=== PATIENT | female | born 1970 | race Caucasian/White ===

== ENCOUNTER 2017-11-04 06:07 | Observation (INO) | payer OTHER ==
[~2017-11-04 06:07] MED LIST: Buffered Lidocaine 0.9% SYRIN* 5 ML/SYR SYRINGE INTRADERM ONE; Dexamethasone IV* 4 MG/ML 1 ML (4 MG) IV SLOW PU ONE; Famotidine IV* 10 MG/ML 2 ML (20 mg) IV ONE
[2017-11-04] MEDS ORDERED: Famotidine IV* 10 MG/ML 2 ML (20 mg) ONE (06:17)
[2017-11-04] MEDS ORDERED: Dexamethasone IV* 4 MG/ML 1 ML (4 MG) ONE (06:17)
[2017-11-04] MEDS ORDERED: ceFAZolin 2 GM in NS PREMIX(*) 0 GM/0 ML BAG IVPB ONE (06:17)
[2017-11-04] MEDS ORDERED: Clindamycin 900 MG/D5W BAG(*) 900 MG/50 ML BAG IVPB ONE (06:19)
[2017-11-04] MEDS ORDERED: Rocuronium* 10 MG/ML VIAL ONE (06:59)
[2017-11-04] MEDS ORDERED: Propofol* 10 MG/ML 20 ML BTL IV PUSH ONE (06:59)
[2017-11-04] MEDS ORDERED: Lidocaine 2% PF * 5 ML VIAL ONE (06:59)
[2017-11-04] MEDS ORDERED: Midazolam* 1 MG/ML 5 ML VIAL (5 MG) ONE (07:00)
[2017-11-04] MEDS ORDERED: fentaNYL* 50 MCG/ML 5 ML VIAL (250 MCG VIAL) ONE (07:01)
[2017-11-04] MEDS ORDERED: Bacitracin IV* 50,000 UNITS INJ ONE (07:16)
[2017-11-04] MEDS ORDERED: Lidocain 1% EPI 1:100,000 * 30 ML MDV ONE (07:16)
[2017-11-04] MEDS ORDERED: Thrombin 5,000 UNITS* 1 APPLIC KIT - topical use - TOPICAL ONE (07:16)
[2017-11-04] MEDS ORDERED: HYDROcodone/ACETAMIN 5-325 MG* 1 TAB PO PRN (07:23)
[2017-11-04] MEDS ORDERED: Naloxone* 0.4 MG/ML 1 ML VIAL IV PRN (07:23)
[2017-11-04] MEDS ORDERED: DiMENhydriNATE IV* 50 MG/ML VIAL IV PUSH PRN (07:23)
[2017-11-04] MEDS ORDERED: oxyCODONE/Acetamin 5/325 MG* TAB PO PRN (07:23)
[2017-11-04] MEDS ORDERED: Ondansetron INJ* 2 MG/ML VIAL ONE (08:34)
[2017-11-04] MEDS ORDERED: Glycopyrrolate IV* 0.2 MG/ML 1 ML VIAL ONE (08:36)
[2017-11-04] MEDS ORDERED: Neostigmine Methylsulfate* 1 MG/ML 10 ML VIAL (1 mg/ml) ONE (08:36)
[2017-11-04] MEDS ORDERED: Acetaminophen TAB* 325 MG PO PRN (08:53)
[2017-11-04] MEDS ORDERED: Ondansetron INJ* 2 MG/ML VIAL IV PRN (08:53)
[2017-11-04] MEDS ORDERED: Magnesium Hydroxide LIQ* 30 ML UDC PO PRN (08:53)
[2017-11-04] MEDS ORDERED: fentaNYL* 50 MCG/ML 2 ML VIAL (100 MCG VIAL) ONE ×3 (09:16→09:56)
[2017-11-04] MEDS: fentaNYL* 50 MCG/ML 2 ML VIAL (100 MCG VIAL) IV PRN ×5 (09:17→09:57)
[2017-11-04] MEDS ORDERED: oxyCODONE/Acetamin 5/325 MG* TAB ONE (09:54)
--- NOTE | 2017-11-04 10:07 | RAD ---
HISTORY: LUMBAR DISCECTOMY L4-5 LEFT,DECOMPRESSIVE LUMBAR L COMPARISONS: October 07, 2017. VIEWS: 1 , single single portable crosstable intraoperative view of the lumbar spine performed for localization during spine surgery at 7:59 AM FINDINGS: Portable intraoperative view of the spine performed during spinal surgery demonstrates metallic probe opposite of L4-L5 counting from L5 as the last lumbar type vertebral body. IMPRESSION: LIMITED PORTABLE VIEW OF THE SPINE FOR LOCALIZATION DURING SPINAL SURGERY.
[2017-11-04] MEDS: HYDROcodone/ACETAMIN 5-325 MG* 1 TAB PO PRN ×3 (11:34→20:28)
[2017-11-04] MEDS ORDERED: Montelukast Sodium TAB* 10 MG PO SCH (21:00)
[2017-11-04] MEDS ORDERED: Baclofen TAB* 10 MG PO SCH (21:00)
[2017-11-05] MEDS: HYDROcodone/ACETAMIN 5-325 MG* 1 TAB PO PRN ×3 (01:21→09:18)
[2017-11-05 07:29] VITALS: BP 116/59
--- NOTE | 2017-11-05 08:37 | PN ---
Progress Note - Progress Note Date of Service: 11/05/17 SOAP: Subjective: [S/p lumbar decompression L4-5, POD#1. Complains of low back soreness and pain. Ambulation improved since preop, ambulating around nursing unit well. Pre-op lower extremity symptoms improved. Eating and drinking without difficulty. Pain controlled with PO meds. Denies headache, nausea. ] Objective: [ Vital Signs: Temp Pulse Resp BP Pulse Ox 98.4 F 57 18 116/59 97 11/05/17 07:21 11/05/17 07:21 11/05/17 08:02 11/05/17 07:21 11/05/17 07:21 General: Alert and sitting up in bed. NAD Neuro: Motor and sensory intact. Incision: Intact with zehra. Drain discontinued today. No swelling, mild ecchymosis. ] Assessment: [Satisfactory post-op course. ] Plan: [1. Discharge home today. 2. Discharge instructions discussed.]
[2017-11-05] MEDS ORDERED: Baclofen TAB* 10 MG PO SCH (09:00)
--- NOTE | 2017-11-05 23:56 | OP ---
DATE OF OPERATION: 11/04/17 - ROOM #335 DATE OF : 66 SURGEON: Michael Alcantara MD ON AIR HOST: JOE Rosenbaum ANESTHESIA: General. PRE-OP DIAGNOSIS: Lumbar spinal stenosis at L4-5, herniated nucleus pulposus L4 -5 on the left. POST-OP DIAGNOSIS: Lumbar spinal stenosis L4-5. OPERATIVE PROCEDURE: Decompressive lumbar laminectomy at L4-5 with microdissection. DESCRIPTION OF PROCEDURE: After satisfactory general anesthesia was obtained, the patient was placed on the operating table in a prone position with the chest supported on the Manuelito frame and the back slightly flexed. The lumbar region was then clipped, prepped and draped in a sterile manner for lumbar laminectomy and a skin incision outlined from L4 to L5. This incision was infiltrated with 1% Xylocaine with epinephrine after which it was turned down sharply to the level of the lumbar fascia. The fascia was divided along the spinous processes of L4 and L5 and the paraspinal musculature was stripped away from these posterior elements using the periosteal elevator and monopolar cautery. An intraoperative x-ray was obtained verifying proper interspace localization after which a decompression was carried out by removing the spinous process at L4 with a Leksell rongeur. The remaining portion at the base of the spinous process of L4 and the medial facet complex was thinned out with a Midas Adolfo drill. Kerrison rongeurs were then used to perform a decompression. This was carried superiorly until the attachment of the ligamentum flavum was taken down. Generous decompression was carried out at this level until both L5 nerve roots noted to be free in their course. Generous foraminotomies were carried out at this level. At this point of the procedure, the operating microscope was brought into the field as preoperative imaging has suggested a disk herniation on the left side. Utilizing microdissection, epidural venous structures were coagulated and divided. Projecting beneath the L5 nerve root was noted to be a calcified heaped up disk that was not disturbed. After assuring adequate hemostasis, wound was thoroughly irrigated, after which a piece of Gelfoam was placed over the laminectomy defect. A drain was then placed in the epidural space and tunnelled out towards the left side. The fascia was then reapproximated with 0 Vicryl suture. The subcutaneous tissues were closed with 3-0 Vicryl suture and the skin closed with skin clips. The estimated blood loss was 100 cc and the final sponge, padding, and needle counts were correct. The patient was taken to the recovery room, extubated, and in stable condition. [id number] #: [id number] MTDD
== END 2017-11-05 09:30 | disposition home or self-care (01) ==
LOC: OR 06:07 → SSU 08:53
PROVIDERS: ADMIT Neurological Surgery; ATTEND Neurological Surgery
PROC: 01NB0ZZ Release Lumbar Nerve, Open Approach (ICD-10-PCS; 2017-11-04)
PROC: 0SB20ZZ Excision of Lumbar Vertebral Disc, Open Approach (ICD-10-PCS; principal; 2017-11-04 07:30)
DX: M51.26 Other intervertebral disc displacement, lumbar region (principal); M48.061 Spinal stenosis, lumbar region without neurogenic claudication; M51.16 Intervertebral disc disorders with radiculopathy, lumbar region; Z88.0 Allergy status to penicillin; Z88.8 Allergy status to other drugs, medicaments and biological substances; Z79.899 Other long term (current) drug therapy; F17.210 Nicotine dependence, cigarettes, uncomplicated; Z23 Encounter for immunization
CPT/HCPCS: 72100; 90471; 90686; 96374; 96376; A9270-GY; G0008; G0378; J0690; J1100; J2250; J2405; J2704; J2710; J3010

== ENCOUNTER 2023-10-31 08:08 | Inpatient (IN) ==
[2023-10-31] MEDS: Lactated Ringers SEPSIS* BAG 1,850 ML IV ONE (08:44)
[2023-10-31] MEDS: fentaNYL 100 mcg/2 ml 50 MCG/ML VIAL IV SLOW PU ONE (08:49)
[2023-10-31] MEDS: Cefepime 2 GM in Dextrose 2 GM/50 ML BAG IV ONE (08:49)
[2023-10-31 08:57] LABS: ABS Lymphocytes 0.1 10^3/uL (1.0-4.8); ABS Monocytes 0.3 10^3/uL (0.0-0.9); ABS Neutrophils 8.9 10^3/uL (1.5-7.6); ABS Nucleated RBC 0.01 10^3/ul; Eosinophil % 0.5 %; Hemoglobin 15.1 g/dL (11.5-14.3); Lymphocyte % 1.1 %; Mean Corpuscular Hemoglobin 29.9 pg (27-33); Mean Corpuscular Hgb Conc 33.5 g/dL (31-36); Mean Corpuscular Volume 89.4 fL (80-97); Mean Platelet Volume 8.1 fL (7.5-11.2); Nucleated Red Blood Cells % 0.1 %/100WBC (0.0-0.8); Platelet Count 368 10^3/uL (150-450); Red Blood Count 5.04 10^6/uL (3.63-4.92); Red Cell Distribution Width 13.6 % (12-17); White Blood Count 9.3 10^3/uL (3.8-11.8)
[2023-10-31] MEDS: Lactated Ringers 1000 ml BAG 1,000 ML IV ONE ×2 (09:12→11:15)
[2023-10-31] MEDS: Ondansetron 4 mg VIAL 2 MG/ML 2 ml VIAL IV ONE (09:45)
[2023-10-31] MEDS: Morphine 4 MG/ML VIAL (1 ml) IV ONE ×3 (09:45→12:59)
[2023-10-31 10:04] LABS: Albumin 3.9 g/dL (3.2-5.2); Albumin/Globulin Ratio 1.5 (1-3); C Reactive Protein 56.63 mg/L (<8.01); Calcium 8.6 mg/dL (8.6-10.3); Creatinine, Serum 0.86 mg/dL (0.51-0.95); Globulin 2.6 g/dL (2-4); Potassium 3.8 mmol/L (3.5-5.0); Total Bilirubin 0.4 mg/dL (0.2-1.0); Total Protein 6.5 g/dL (6.4-8.9); eGFR CKD-EPI 79.7 (>60)
[2023-10-31 10:20] LABS: Activated Partial Thrombo Time 29.6 seconds (26.0-38.0); INR 1.09 (0.85-1.14)
[2023-10-31 10:30] LABS: High Sensitivity Troponin 1 Hr 6 pg/mL (<15)
[2023-10-31] MEDS: Iodixanol (CONTRAST) 320 MG/ML 100 ML SDV IV ONE (12:31)
[2023-10-31 13:52] LABS: Urine Appearance Clear; Urine Bacteria Absent /HPF (Absent); Urine Bilirubin Negative (Negative); Urine Blood Negative (Negative); Urine Color Yellow; Urine Glucose 1+ (>=70 mg/dL) (Negative); Urine Ketones 1+ (Negative); Urine Nitrite Negative (Negative); Urine Protein 2+ (>=100 mg/dL) (Negative); Urine Red Blood Cell 1+(3-5/hpf) /HPF (0-Trace); Urine Specific Gravity >1.050 (1.002-1.030); Urine Squamous Epithelial Cell Present /HPF (Absent); Urine Urobilinogen Negative (Negative); Urine White Blood Cell Trace(0-5/hpf) /HPF (0-Trace)
[2023-10-31] MEDS ORDERED: Zosyn per Pharmacy NOTE FOLLOW UP SCH (14:00)
[2023-10-31] MEDS ORDERED: Ondansetron 4 mg VIAL 2 MG/ML 2 ml VIAL IV PRN (14:03)
[2023-10-31] MEDS: Piperacillin/Tazobac 3.375 BAG 3.375 GM/100 ML BAG IV ONE (14:08)
[2023-10-31] MEDS ORDERED: Bupivacaine 0.25% EPI 200,000 30 ML SDV ONE (14:26)
[2023-10-31] MEDS ORDERED: Ondansetron 4 mg VIAL 2 MG/ML 2 ml VIAL ONE (14:35)
[2023-10-31] MEDS ORDERED: Rocuronium 50 mg VIAL 10 mg/ml 5 ml VIAL (50 mg) ONE ×2 (14:35→16:14)
[2023-10-31] MEDS ORDERED: Propofol 10 MG/ML 20 ML BTL ONE (14:35)
[2023-10-31] MEDS ORDERED: Dexamethasone IV 4 MG/ML VIAL 1 ml VIAL ONE (14:35)
[2023-10-31] MEDS ORDERED: fentaNYL 250 mcg/5 ml 50 MCG/ML 5 ml VIAL (250 MCG) ONE (14:35)
[2023-10-31] MEDS ORDERED: Lidocaine 2% PF 5 ML VIAL ONE (14:35)
[2023-10-31] MEDS ORDERED: Midazolam 2 mg/2 ml VIAL 1 mg/ml 2 ml VIAL (2 mg) ONE (14:35)
[2023-10-31] MEDS ORDERED: HYDROmorphone 0.5 MG/0.5 ML SYRINGE ONE ×2 (15:35→15:43)
[2023-10-31] MEDS ORDERED: fentaNYL 100 mcg/2 ml 50 MCG/ML VIAL ONE ×2 (15:43→17:37)
[2023-10-31] MEDS ORDERED: Dextrose 50% Syringe 50 ml 25 GM/50 ML SYRINGE IV PUSH PRN (20:46)
[2023-10-31] MEDS: Lactated Ringers 1000 ml BAG 1,000 ML IV SCH (21:23)
[2023-10-31] MEDS: ZOSYN 3.375 GM x ONE DOSE over 30 miuntes IV (23:02)
[2023-11-01] MEDS: Pantoprazole VIAL 40 MG VIAL IV SCH (03:04)
[2023-11-01] MEDS: ZOSYN 3.375 GM Q8H per EXTENDED INFUSION IV SCH (04:05)
[2023-11-01 06:37] LABS: ABS Lymphocytes 0.1 10^3/uL (1.0-4.8); ABS Monocytes 0.6 10^3/uL (0.0-0.9); ABS Neutrophils 12.5 10^3/uL (1.5-7.6); Hematocrit 39.5 % (35-45); Hemoglobin 13.2 g/dL (11.5-14.3); Lymphocyte % 0.8 %; Mean Corpuscular Hemoglobin 29.6 pg (27-33); Mean Corpuscular Hgb Conc 33.4 g/dL (31-36); Mean Corpuscular Volume 88.7 fL (80-97); Platelet Count 293 10^3/uL (150-450); Red Blood Count 4.46 10^6/uL (3.63-4.92); Red Cell Distribution Width 13.3 % (12-17); White Blood Count 13.2 10^3/uL (3.8-11.8)
[2023-11-01 07:20] LABS: Calcium 7.7 mg/dL (8.6-10.3); Creatinine, Serum 0.73 mg/dL (0.51-0.95); Potassium 4.1 mmol/L (3.5-5.0); eGFR CKD-EPI 97.1 (>60)
[2023-11-01] MEDS: Enoxaparin 40 MG/0.4 ML SYR SUBCUT SCH (08:15)
[2023-11-01] MEDS: Vancomycin 1,000 MG in NS 0.9% 250 ml 250 ML IVPB ONE (09:49)
[2023-11-01] MEDS: Influenza Vaccine *TRI* 2024-25* 0.5 ML SYRINGE IM ONE (13:09)
[2023-11-02] MEDS: [UNRECOGNIZED DRUG - OTHER] IV SCH (00:27)
[2023-11-02 06:40] LABS: Anion Gap 6 mmol/L (2-16); Blood Urea Nitrogen 10 mg/dL (6-24); CO2 Carbon Dioxide 26 mmol/L (22-32); Calcium 7.2 mg/dL (8.6-10.3); Chloride 104 mmol/L (101-111); Creatinine, Serum 0.62 mg/dL (0.51-0.95); Glucose 130 mg/dL (70-100); Sodium 136 mmol/L (135-145); eGFR CKD-EPI 105.1 (>60)
[2023-11-02 07:52] LABS: Potassium, Whole Blood 3.3 mmol/L (3.4-4.5)
[2023-11-02] MEDS: Phenol 1.4% Throat Spray BTL MT PRN (20:21)
[2023-11-03] MEDS: D5LR 1000 ml BAG 1,000 ML IV SCH (11:55)
[2023-11-04] MEDS: Influenza Vaccine *TRI* 2024-25* 0.5 ML SYRINGE IM ONE (08:23)
[2023-11-04 09:52] LABS: ABS Eosinophils 0.2 10^3/uL (0.0-0.5); ABS Lymphocytes 0.1 10^3/uL (1.0-4.8); ABS Monocytes 0.8 10^3/uL (0.0-0.9); ABS Neutrophils 9.2 10^3/uL (1.5-7.6); Eosinophil % 1.5 %; Hematocrit 34.9 % (35-45); Hemoglobin 12.1 g/dL (11.5-14.3); Lymphocyte % 1.4 %; Mean Corpuscular Hemoglobin 30.3 pg (27-33); Mean Corpuscular Hgb Conc 34.5 g/dL (31-36); Mean Corpuscular Volume 87.8 fL (80-97); Mean Platelet Volume 7.8 fL (7.5-11.2); Platelet Count 260 10^3/uL (150-450); Red Blood Count 3.98 10^6/uL (3.63-4.92); Red Cell Distribution Width 13.9 % (12-17); White Blood Count 10.4 10^3/uL (3.8-11.8)
[2023-11-04 10:36] LABS: Creatinine, Serum 0.49 mg/dL (0.51-0.95); Potassium 3.2 mmol/L (3.5-5.0); eGFR CKD-EPI 111.2 (>60)
[2023-11-06 10:03] LABS: Calcium 7.6 mg/dL (8.6-10.3); Creatinine, Serum 0.44 mg/dL (0.51-0.95); Magnesium 1.7 mg/dL (1.9-2.7); Phosphorus 2.1 mg/dL (2.5-5.0); eGFR CKD-EPI 114.2 (>60)
[2023-11-06] MEDS: Magnesium Sulfate 2 gm BAG 2 GM/50 ML BAG IVPB ONE (19:00)
[2023-11-06] MEDS: KCL 10 MEQ/50 ML IVPREMIX 10 MEQ/50 ML BAG IV SCH (21:57)
[2023-11-07 09:07] LABS: Calcium 7.2 mg/dL (8.6-10.3); Creatinine, Serum 0.44 mg/dL (0.51-0.95); Magnesium 1.9 mg/dL (1.9-2.7); Potassium 3.3 mmol/L (3.5-5.0); eGFR CKD-EPI 114.2 (>60)
[2023-11-07] MEDS: KCL 10 MEQ/50 ML IVPREMIX 10 MEQ/50 ML BAG IV SCH (10:59)
[2023-11-08 07:13] LABS: Calcium 7.5 mg/dL (8.6-10.3); Creatinine, Serum 0.46 mg/dL (0.51-0.95); Magnesium 1.8 mg/dL (1.9-2.7); Phosphorus 2.6 mg/dL (2.5-5.0); Potassium 3.3 mmol/L (3.5-5.0); eGFR CKD-EPI 112.9 (>60)
[2023-11-08] MEDS: Magnesium Sulfate IV 1GM/100ML 1 GM/100 ML BAG IV ONE (09:17)
[2023-11-08] MEDS: KCL 10 MEQ/50 ML IVPREMIX 10 MEQ/50 ML BAG IV SCH (09:17)
[2023-11-09] MEDS: oxyCODONE 5 mg/5 ml ORAL.SOLN UDC G TUBE PRN (11:42)
[2023-11-10 10:01] LABS: ABS Eosinophils 0.1 10^3/uL (0.0-0.5); ABS Lymphocytes 0.2 10^3/uL (1.0-4.8); ABS Monocytes 0.9 10^3/uL (0.0-0.9); ABS Neutrophils 11.4 10^3/uL (1.5-7.6); Eosinophil % 0.8 %; Hematocrit 31.9 % (35-45); Hemoglobin 10.5 g/dL (11.5-14.3); Lymphocyte % 1.4 %; Mean Corpuscular Hemoglobin 28.7 pg (27-33); Mean Corpuscular Hgb Conc 32.8 g/dL (31-36); Mean Corpuscular Volume 87.5 fL (80-97); Mean Platelet Volume 8.1 fL (7.5-11.2); Platelet Count 473 10^3/uL (150-450); Red Blood Count 3.64 10^6/uL (3.63-4.92); Red Cell Distribution Width 13.8 % (12-17); White Blood Count 12.6 10^3/uL (3.8-11.8)
[2023-11-10 10:08] LABS: Calcium 7.6 mg/dL (8.6-10.3); Creatinine, Serum 0.41 mg/dL (0.51-0.95); Magnesium 1.8 mg/dL (1.9-2.7); Phosphorus 3.4 mg/dL (2.5-5.0); Potassium 3.8 mmol/L (3.5-5.0); eGFR CKD-EPI 116.1 (>60)
[2023-11-10] MEDS: Magnesium Sulfate 2 gm BAG 2 GM/50 ML BAG IVPB ONE (12:40)
[2023-11-10] MEDS: oxyCODONE 5 mg/5 ml ORAL.SOLN UDC PO PRN (19:54)
[2023-11-11 13:52] VITALS: BP 126/65
== END 2023-11-11 14:33 | disposition home or self-care (01) | DRG 710 ==
LOC: ED 08:08 → EDHOLD 13:54 → AA 14:12 → SSU 20:16
PROVIDERS: ADMIT Surgery; ATTEND Surgery